=== PATIENT | female | born 1970 | race Caucasian/White ===

== ENCOUNTER 2016-11-08 05:50 | Observation (INO) | payer OTHER ==
--- NOTE | 2016-10-25 14:07 | GHP ---
[f rep st] PREOP HISTORY AND PHYSICAL Amended report Surgery date is November 08, 2016, at 7:15 a.m. Surgery to be performed: Total laparoscopic hysterectomy, bilateral salpingectomy. PREOPERATIVE DIAGNOSIS: Symptomatic uterine fibroids. HISTORY OF PRESENT ILLNESS: The patient is a 46-year-old, 2, para 2-0-0 -2, who presented as a new patient in August 2016, complaining of a long- standing history of heavy menstrual periods. She said they began approximately 3 years prior to visit. The periods come every month. She bleeds multiple days and with heavy flow, needing to change a pad and a tampon every hour, and she has heavy bulk symptoms in her uterus and her lower back and pelvis. She also has copious vaginal discharge that is requiring her to wear a pad throughout the month and has episodes of gushing, needing a panty liner that she changes 2-3 times a day. She feels heavy and has significant dyspareunia as well. The patient was previously living in [place] and had not had a gynecological exam in approximately 3 years. Due to delays in the [facility] system, it took her many months to be able to get an ultrasound, which had diagnosed submucosal fibroids, and she was awaiting a consultation with a cold working inspector when she moved back. Upon our evaluation, we did a pelvic ultrasound that revealed multiple large uterine fibroids, which were submucosal in nature, pushing against the endometrium. The largest is 3.95 x 3.79 x 4.41 cm, and the second is 2.3 x 2.37 x 2.95 cm. She also has smaller 1.1 cm fibroids that are in the subserosal area. The fibroids are obstructing the endometrial canal. It is hard to visualize the thickness of the endometrial canal. Ovaries were within normal limits. The patient was given treatment options, but due to the size of the submucosal fibroids, I do not feel that hysteroscopic resection and myomectomy is appropriate. I feel she has completed her childbearing and desires definitive management, and we discussed a total laparoscopic hysterectomy, bilateral salpingectomy. We will keep her ovaries. PAST OBSTETRICAL HISTORY: She had 2 full-term spontaneous vaginal deliveries; in 1997, a viable female, 9 pounds, vaginal delivery without complication; and in 1999, a viable male, 7 pounds. She was induced for oligohydramnios, but patient and baby are fine. No other pregnancies. GYNECOLOGICAL HISTORY: She had her menarche at age 14, monthly cycles with moderate breakthrough bleeding, heavy cycles, and has significant cramps. She had used oral contraceptive pills for years and has been continuing to use oral contraceptive pills to attempt to improve her menstrual flow. No history of any abnormal Paps. No history of any STDs. I performed a Pap smear in August , which was within normal limits, and high-risk HPV was negative. PAST MEDICAL HISTORY: Hypothyroidism diagnosed 20 years ago. Currently on Synthroid 0.137 mcg daily and stable. No other significant medical problems. PAST SURGICAL HISTORY: She has had a tonsillectomy in 1988, appendectomy in 2004, and a cholecystectomy in 2006. In August of this year, she underwent a bone marrow biopsy to donate her bone marrow to her sister, who is suffering from AML leukemia. Interestingly, she had to have a blood transfusion to recuperate from the bone marrow biopsy. ALLERGIES: The patient has no known drug allergies. MEDICATIONS: Include Synthroid 37 mcg daily, control pills, and a probiotic. SOCIAL HISTORY: She is . She lives with her and her 2 children. Recently moved back to the [facility]. Is not currently working. She denies tobacco. Has alcohol 1 drink a day. No drug use. FAMILY HISTORY: Her sister has AML leukemia. Her mother had breast cancer as an older woman. Grandmother also had breast cancer. Dad has hypothyroidism. Her son has epilepsy. Dad also had thyroid and skin cancer. OBJECTIVE: VITAL SIGNS: Today, she is afebrile. Vital signs are stable. Blood pressure is 104/68. Weight is 167 pounds. GENERAL: She is a well- developed, well-nourished white female in no acute distress. LUNGS: Clear to auscultation bilaterally. HEART: Regular rate and rhythm. No murmur. ABDOMEN : Soft, nontender, nondistended. Normal bowel sounds. She has slight fullness in the midline of her abdomen where her uterus is. PELVIC: Normal external genitalia. Normal parous cervix. Uterus is bulky but mobile and moderately tender to deep palpation. No adnexal masses were felt. ASSESSMENT AND PLAN: A 46-year-old, 2, para 2-0-0-02, with a longstanding history of menometrorrhagia and chronic vaginal discharge, with 2 large submucosal fibroids, for definitive treatment with a total laparoscopic hysterectomy, bilateral salpingectomy. The patient was consented for the procedure today. She understood the risks and benefits, the risks including bleeding, infection, damage to organs, uterus, tubes, ovaries, bowel, bladder, nerves, blood vessels, ureters, need for additional procedures, need for open procedures, and risk of blood transfusion. She understood these risks and benefits and agreed to proceed. /[id number]/MODL Add acc#, 11/08/16, narendra ARELLANO
[2016-11-08] MEDS ORDERED: ceFAZolin 2 GM/DEXTROSE 100 ML IV ONE (06:00)
[2016-11-08] MEDS ORDERED: LIDOCAINE 1% 5 ML SDV ONE (06:33)
[2016-11-08] MEDS ORDERED: ceFAZolin 2 GM in D5W 100 ML IV ONE (07:00)
[2016-11-08] MEDS ORDERED: LIDOCAINE 1% 5 ML SDV ID PRN (07:01)
[2016-11-08] MEDS ORDERED: LR 1,000 ML IV ONE (07:01)
[2016-11-08] MEDS ORDERED: MIDAZOLAM 2 MG/2 ML VIAL ONE (07:16)
[2016-11-08] MEDS ORDERED: HYDROmorphONE/DILAUDID 2 MG/ML SYR ONE (07:23)
[2016-11-08] MEDS ORDERED: PROPOFOL 200 MG/20 ML VIAL ONE (07:23)
[2016-11-08] MEDS ORDERED: GLYCOPYRROLATE 0.2 MG/1 ML VIAL ONE ×2 (07:24→09:54)
[2016-11-08] MEDS ORDERED: NEOSTIGMINE METHYLSULFATE 5 MG/5 ML SYR ONE (07:24)
[2016-11-08] MEDS ORDERED: DEXAMETHASONE 4 MG/ML VIAL ONE ×2 (07:24)
[2016-11-08] MEDS ORDERED: LIDOCAINE 2% 5 ML SDV ONE (07:24)
[2016-11-08] MEDS ORDERED: ROCURONIUM 100 MG/10 ML VIAL ONE (07:24)
[2016-11-08] MEDS ORDERED: ONDANSETRON 4 MG/2 ML VIAL ONE (07:24)
[2016-11-08] MEDS ORDERED: BUPIVACAINE/EPI 0.5% 30 ML SDV ONE (07:27)
[2016-11-08] MEDS ORDERED: BUPIVACAINE 0.5% 30 ML SDV ONE (07:27)
[2016-11-08] MEDS ORDERED: DEXMEDETOMIDINE HCL 200 MCG/2 ML VIAL IV ONE (08:23)
[2016-11-08] MEDS ORDERED: KETOROLAC 30 MG/1 ML SDV IVP ONE (10:06)
--- NOTE | 2016-11-08 10:06 | POSTOPPROG ---
Post Op Note Date of Operation: 11/08/16 Surgeon: Heather Betancourt Senior Interactive Developer: Mariam Willett Anesthesiologist: Wojciech Booker Anesthesia: GET(General Endotracheal) Pre-op Diagnosis: symptomatic uterine fibroids, menomenorrhagia Post-op Diagnosis: same Indication: same Procedure: TLH B salpingectomy Findings: uterus with multiple fibroids Inf/Abcess present in the surg proc area at time of surgery?: No Depth: Organ Space EBL: 50-100 Complications: none Specimen(s): uterus, and bilateral fallopian tubes
[2016-11-08] MEDS ORDERED: LACTULOSE 20 GM/30 ML UDCUP PO PRN (10:09)
[2016-11-08] MEDS ORDERED: NALOXONE HCL 0.4 MG/ML INJ IVP PRN (10:09)
[2016-11-08] MEDS ORDERED: HYDROmorphONE/DILAUDID 6 MG/30 ML PCA IV PRN (10:09)
[2016-11-08] MEDS ORDERED: MAGNESIUM HYDROXIDE 30 ML UDCUP PO PRN (10:09)
[2016-11-08] MEDS ORDERED: POLYETHYLENE GLYCOL 3350 17 GM PKT PO PRN (10:09)
[2016-11-08] MEDS ORDERED: BISACODYL 10 MG SUPP PR PRN (10:09)
[2016-11-08] MEDS ORDERED: fentaNYL 100 MCG/2 ML INJ ONE (10:25)
[2016-11-08] MEDS ORDERED: LR 1,000 ML IV SCH (10:30)
--- NOTE | 2016-11-08 12:42 | GOP ---
[f rep st] OPERATIVE REPORT DATE OF OPERATION: 11/08/2016 SURGEON: Heather Betancourt MD TRAFFIC ASSISTANT: Dr. Mariam Willett. ANESTHESIA: General anesthesia. ANESTHESIOLOGIST: Dr. Wojciech Grayson. PREOPERATIVE DIAGNOSIS: Symptomatic uterine fibroids and menometrorrhagia. POSTOPERATIVE DIAGNOSIS: Symptomatic uterine fibroids and menometrorrhagia. PROCEDURE PERFORMED: Total laparoscopic hysterectomy, bilateral salpingectomy, and lysis of adhesions. FINDINGS: ESTIMATED BLOOD LOSS: For the procedure was 100 cc. INDICATIONS: Douglas is a 46-year-old, 2, para 2-0-0-2, who complains of a longstanding history of heavy menstrual periods approximately 3 years prior to presentation. She bleeds multiple days a month with heavy flow, needing to change a tampon and a pad every hour, and she has heavy bulk symptoms in her uterus with pain in her lower back and her pelvis. She also has a copious vaginal discharge requiring her to wear a pad throughout the month, has episodes of gushing and needing to change 2-3 times a day. She had significant heaviness in her pelvis and significant dyspareunia. On evaluation, patient was found to have large submucosal fibroids, 3.5 x 3.7 x 4.1 cm and 2.3 x 2.37 x 2.95 cm, and also some smaller subserosal fibroids. Fibroids are obstructing the endometrial canal, disrupting her flow. We discussed treatment options including medical management versus surgical management, and patient wanted definitive management with a hysterectomy. She was consented for the procedure. She understood the risks and benefits. The risks including bleeding , infection, damage to organs, tubes, ovaries, bowel, bladder, nerves, blood vessels, ureters, risk of needing to convert to an open procedure, risk of additional procedures, and she understood these risks and benefits and agreed to proceed. DESCRIPTION OF PROCEDURE: The patient was taken to the operating room, where she was placed under general anesthesia without difficulty. She was prepped and draped in the dorsal lithotomy position, and a Arias catheter was placed in her bladder. After a WHO time-out was performed, an open-sided speculum was placed in the vagina and a single-tooth tenaculum was used to grasp the anterior lip of the cervix. The uterus sounded to 9 cm, and the cervix was then progressively dilated with Flowers dilators to a #7. The ARIE uterine manipulator was gently advanced to her fundus. The balloon was inflated for placement, and the large cuff was extended around her cervix into the vaginal mucosa. The speculum was removed as well as the tenaculum, and attention was turned to the abdominal portion of the procedure. After injection with Marcaine , a 5 mm skin incision was made in the infraumbilical skin fold, and a Veress needle was used to enter the peritoneal cavity, and pneumoperitoneum was created with carbon dioxide gas after a normal drop in pressure was seen. The 5 mm atraumatic trocar was then placed under direct visualization, and the abdominal cavity was entered. The patient was placed in Trendelenburg and after injection of Marcaine, a 5 mm skin incision was made in the right lower quadrant, and a 5 mm atraumatic trocar was placed under direct visualization, and a 1 cm skin incision and a 1 cm trocar were placed in the left. With careful manipulation of the bowel, the visualization of the pelvis revealed a large bulky uterus with obvious uterine fibroids displacing the uterus to the right. Tubes and ovaries were normal. The rest of the pelvis was normal. There were clips seen at the appendectomy site as well as some clips seen from likely a cholecystectomy, and those were in the bowel, and those were removed directly. A loop of colon was adherent to the left pelvic sidewall near the left tube and ovary, and with careful manipulation, adhesions were lysed with the LigaSure to allow for bowel manipulation away from the uterus. Careful inspection of her pelvis again revealed good normal anatomy. Ureters were not able to be seen through the peritoneum due to adipose tissue. The left fallopian tube was grasped at the fimbriated end, and with the LigaSure, we cauterized and ligated the tube from the fimbria to the cornual region of the uterus along the mesosalpinx, and the tube was removed out of the 10 mm port. Manipulation of the uterus to the right allowed for visualization of the left utero-ovarian ligament, round ligament, and these were cauterized and cut with the LigaSure, and a plane was created and the left ovary was deflected toward the pelvic sidewall. Dissection was then continued along the cardinal ligaments , and the broad ligament was opened in the anterior and posterior leaf. Manipulation of the anterior leaf of the broad ligament allowed for a bladder flap to be created with sharp as well as blunt dissection, and that was carried through bilaterally. Uterine arteries were then visualized, cauterized and cut with the LigaSure, and with careful dissection, the colpotomy cup was visualized from the vaginal side. Identical procedure was then performed on the right side of the uterus with the manipulation of the right fallopian tube grasped at the fimbriated end, cauterized and cut with the ligature along the mesosalpinx and removed directly through the 10 mm port. Then, visualization of the utero-ovarian ligament, the round ligaments and the cardinal ligaments with the LigaSure with care to visualize the entire anatomy, manipulate the bladder flap and then visualize the uterine vessels to cauterize and cut to allow for full visualization of the colpotomy cup from the vagina. After care was taken to visualize that the uterus was adequately devascularized, and the cup was seen circumferentially along the entire cervix, the Harmonic Scalpel was used to dissect the vaginal mucosa and the colpotomy was created along the metal cup in a circumferential fashion. Without difficulty and with good hemostasis, the uterus was removed vaginally. An inflated glove was placed vaginally to instill pneumoperitoneum, and the 0 Vicryl V-Loc suture was introduced into the abdomen. The vaginal cuff was then closed from right to left with the V-Loc suture with 2 redundant stitches along the vaginal cuff. Care was taken to incorporate the uterosacral ligaments, and the cuff was closed directly. Good hemostasis was assured. The pelvis was copiously irrigated with warm normal saline. A small area of bleeding along the lateral portion near the cuff was cauterized with the LigaSure, and good hemostasis was assured. The ovaries were normal and healthy, and there was no bleeding along any of the pedicles. The patient has previously had an appendectomy. That site was visualized and normal as well as her liver, and again, a cholecystectomy clip was removed through the port. The 1 cm port site was then closed with 0 Vicryl with the fascial closure device. Pneumoperitoneum was allowed to escape, and the trocars were removed under direct visualization. The skin incisions were closed with 4-0 Monocryl. Sponge, lap, needle, and instrument counts were correct x3. Patient went to the recovery room in good condition. FLUID REPLACEMENT: 900 cc. URINE OUTPUT: 150 cc. There was care to visualize the ureters before and after surgery, and we were unfortunately not able to visualize them; however, the surgery site went well and there was no concern of abnormal anatomy or compromise.. /[id number]/MODL MTDD
--- NOTE | 2016-11-08 17:49 | SOAPPROG ---
SOAP Progress Note Assessment/Plan: Assessment: 46 y/o POD #0 s/p TLH B salpingectomy doing well Plan: Advance diet as tolerated and will transition to po pain meds. D/c askew in am and anticipate d/c home tomorrow. 11/08/16 17:49 Subjective: Pt is doing well this afternoon. Her pain is well controlled, she denies nausea or vomiting and is ready to eat dinner and try po pain meds. Objective: Vital Signs Temp Pulse Resp BP Pulse Ox 36.6 C 65 16 125/83 H 97 11/08/16 14:30 11/08/16 14:30 11/08/16 14:30 11/08/16 14:30 11/08/16 14:30 11/07/16 11/08/16 11/09/16 05:59 05:59 05:59 Intake Total 1600 Output Total 250 Balance 1350 - Pending Discharge Pending Discharge Within 24 Hours: Yes Pending Discharge Date: 11/09/16 Pending Discharge Time: 11:00 Physical Exam - Physical Exam General Appearance: WD/WN, alert, no apparent distress Neck: non-tender, full range of motion, supple Respiratory: chest non-tender, lungs clear, normal breath sounds Cardiac/Chest: regular rate, rhythm Abdomen: other (incisions c/d/i) Extremities: swelling (no ), Pete's sign (neg) ICD10 Worksheet Patient Problems: Problems Problem Status Diagnosed S/P laparoscopic hysterectomy Acute - ICD10 Problem Qualifiers (1) S/P laparoscopic hysterectomy
[2016-11-08] MEDS: OXYCODONE/APAP 5/325 TAB PO PRN ×2 (18:00→22:05)
[2016-11-08] MEDS: IBUPROFEN 600 MG TAB PO SCH (18:00)
[2016-11-08] MEDS: SENNOSIDES/DOCUSATE SODIUM TAB PO SCH (22:04)
[2016-11-09] MEDS: IBUPROFEN 600 MG TAB PO SCH ×2 (00:03→05:55)
[2016-11-09] MEDS: OXYCODONE/APAP 5/325 TAB PO PRN ×3 (03:18→10:23)
[2016-11-09] MEDS ORDERED: LEVOTHYROXINE 137 MCG TAB PO SCH (06:00)
[2016-11-09 06:39] LABS: % IMMATURE GRANULYOCYTES 0.5 % (0.0-1.1); ABSOLUTE IMMATURE GRANULOCYTES 0.06 10^3/uL (0.00-0.10); ADD DIFF? NO; ADD MORPH? NO; ADD SCAN? NO; ATYPICAL LYMPHOCYTE FLAG 0 (0-99); FRAGMENT RBC FLAG 0 (0-99); HEMATOCRIT 35.5 % (38.0-47.0); HEMOGLOBIN 12.2 g/dL (12.6-16.3); LEFT SHIFT FLG 0 (0-99); LIPEMIA HEMOLYSIS FLAG 90 (0-99); MEAN CELL HEMOGLOBIN 31.9 pg (27.9-34.1); MEAN CELL HEMOGLOBIN CONCENTR. 34.4 g/dL (32.4-36.7); MEAN CELL VOLUME 92.9 fL (81.5-99.8); MEAN PLATELET VOLUME 10.5 fL (8.7-11.7); PLATELET CLUMPS FLAG 0 (0-99); PLATELET COUNT 228 10^3/uL (150-400); RED BLOOD CELL COUNT 3.82 10^6/uL (4.18-5.33); RED CELL DISTRIBUTION WIDTH 13.9 % (11.5-15.2)
[2016-11-09] MEDS: SENNOSIDES/DOCUSATE SODIUM TAB PO SCH (08:08)
[2016-11-09 08:51] VITALS: BP 116/72; PULSE 71; RESP 16; TEMP 97.1; O2SAT 98
--- NOTE | 2016-11-09 09:52 | SOAPPROG ---
SOAP Progress Note Assessment/Plan: Assessment: 46 y/o POD #1 s/p TLH B salpingectomy doing well Plan: D/c home today with Rx Percocet and Ibuprofen. Continue Colace etc at home and follow-up @ [facility] 2 and 6 weeks. 11/08/16 17:49 11/09/16 09:51 Subjective: Pt is doing well this am. She rested overnight, is tolerating reg diet, ambulating, voiding and pain is controlled with po meds. She is ready to go home. Objective: Vital Signs Temp Pulse Resp BP Pulse Ox 36.2 C 71 16 116/72 98 11/09/16 08:00 11/09/16 08:00 11/09/16 08:00 11/09/16 08:00 11/09/16 08:00 Laboratory Results 11/09/16 06:15 11/08/16 11/09/16 11/10/16 05:59 05:59 05:59 Intake Total 2350 Output Total 3350 Balance -1000 Physical Exam - Physical Exam General Appearance: WD/WN, alert, no apparent distress Neck: non-tender, full range of motion, supple Respiratory: chest non-tender, lungs clear, normal breath sounds Cardiac/Chest: regular rate, rhythm Abdomen: normal bowel sounds, other (incison c/d/i) ICD10 Worksheet Patient Problems: Problems Problem Status Diagnosed S/P laparoscopic hysterectomy Acute - ICD10 Problem Qualifiers (1) S/P laparoscopic hysterectomy
== END 2016-11-09 10:50 | disposition home or self-care (01) ==
LOC: F3N 05:50 → FOB 11:36
PROVIDERS: ADMIT Obstetrics & Gynecology; ATTEND Obstetrics & Gynecology
PROC: 0UT74ZZ Resection of Bilateral Fallopian Tubes, Percutaneous Endoscopic Approach (ICD-10-PCS; principal; 2016-11-08 07:15)
PROC: 0UB94ZZ Excision of Uterus, Percutaneous Endoscopic Approach (ICD-10-PCS; principal; 2016-11-08 07:15)
DX: D25.0 Submucous leiomyoma of uterus (principal); D25.2 Subserosal leiomyoma of uterus
CPT/HCPCS: 58545; 58548; G0378; J0690; J1100; J1170; J1885; J2250; J2405; J2704; J2710; J3010

== ENCOUNTER → 2018-03-12 | Outpatient (CLI) | payer OTHER | LOC: FIMAGING 10:37 | PROVIDERS: ATTEND Obstetrics & Gynecology | DX: Z12.31 Encounter for screening mammogram for malignant neoplasm of breast (principal); Z80.3 Family history of malignant neoplasm of breast ==

== ENCOUNTER → 2019-03-31 | Outpatient (CLI) | payer OTHER | LOC: FIMAGING 13:13 ==